=== PATIENT | female | born 2000 | race African-American/Black ===

== ENCOUNTER 2021-10-30 01:14 | Emergency (ER) | payer SELFPAY ==
[2021-10-30 01:50] LABS: Bilirubin Neg (Negative); Blood, Urine 250 (Negative); Clarity Slightly Cloudy (Clear); Glucose, Urine (Dipstick) Normal (Negative); Ketone, Urine Negative (Negative); Leukocyte 25 (Negative); Nitrite Negative (Negative); Protein, Urine (Dipstick) 30 mg/dl (Neg-Trace); Specific Gravity, Urine 1.025 (1.002-1.036)
[2021-10-30 01:54] LABS: Pregnancy Test - Urine (BHCG) Negative (Negative); Pregu Control Background? CLEAR/WHITE (CLR/WHITE); Pregu Control Bar Appear? YES (CONTROL BAR); Specific Gravity 1.025 (1.002-1.036)
[2021-10-30 01:57] LABS: RBC/HPF 0-3 HPF (0-3)
[2021-10-30 01:58] LABS: Bacteria/HPF None Seen HPF (None Seen); Squamous Epithelial 0-3 HPF (0-3)
== END 2021-10-30 02:27 | disposition home or self-care (01) ==
LOC: CSHERS 01:14
DX: N93.9 Abnormal uterine and vaginal bleeding, unspecified (principal)
CPT/HCPCS: 81003; 81015; 81025; 99284